=== PATIENT | female | born 1970 | race Two or more races ===

== ENCOUNTER 2024-04-02 13:22 | Emergency (ER) | payer OTHER ==
[~2024-04-02] VITALS: Ht 152.4 cm; Wt 69.4 kg
[2024-04-02] MEDS ORDERED: HYDRODIURIL12.5 MG PO (13:49)
[2024-04-02] MEDS ORDERED: COZAAR100 MG PO (13:49)
[2024-04-02] MEDS ORDERED: XIIDRA1 EACH (13:49)
[2024-04-02] MEDS ORDERED: CETIRIZINE HCL 5 MG/5 ML ML PO ONE (15:45)
[2024-04-02] MEDS ORDERED: ZYRTEC10 MG PO (16:18)
[2024-04-02] MEDS ORDERED: ERYTHROMYCIN OPH1 GM OP (16:18)
[2024-04-02] MEDS ORDERED: ALREX5 ML OP (16:18)
== END 2024-04-02 16:38 | disposition home or self-care (01) ==
LOC: ER 13:24
DX: H01.002 Unspecified blepharitis right lower eyelid (principal)